=== PATIENT | female | born 1995 | race Caucasian/White ===

== ENCOUNTER 2017-03-26 13:49 | Emergency (ER) | payer OTHER ==
[~2017-03-26] VITALS: Ht 149.9 cm; Wt 41.0 kg
[~2017-03-26 13:49] MED LIST: BISM262O23 PO; IBUP400T22 PO
[2017-03-26 13:52] VITALS: Ht 149.9 cm; Wt 41.0 kg
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
[2017-03-26] MEDS ORDERED: IBUP400T22 PO ×2 (14:21→14:26)
[2017-03-26] MEDS ORDERED: IBUPROFEN 200 MG TAB PO ONE (14:30)
[2017-03-26 15:05] VITALS: BP 135/86; PULSE 66; RESP 20
== END 2017-03-26 15:06 | disposition home or self-care (01) ==
LOC: FTE 13:49
DX: M54.5 Low back pain (principal)
CPT/HCPCS: Z7502; Z7610; 99283

== ENCOUNTER 2017-03-31 19:20 | Emergency (ER) | payer OTHER ==
[~2017-03-31] VITALS: Ht 162.6 cm; Wt 41.5 kg
[2017-03-31 19:31] VITALS: Ht 162.6 cm; Wt 41.5 kg
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
[2017-03-31 22:08] LABS: ADD UMIC YES; UR ASCORBIC ACID NEGATIVE (NEGATIVE); UR BILIRUBIN (Dip) NEGATIVE (NEGATIVE); UR BLOOD (Dip) NEGATIVE (NEGATIVE); UR CLARITY SLIGHTLY CLOUDY (CLEAR); UR COLOR YELLOW (YELLOW); UR GLUCOSE (Dip) NEGATIVE (NEGATIVE); UR KETONES (Dip) NEGATIVE (NEGATIVE); UR LEUKOCYTE ESTERASE (Dip) TRACE Leu/ul (NEGATIVE); UR NITRITE (Dip) NEGATIVE (NEGATIVE); UR RBC 3 /HPF (0-5); UR SPECIFIC GRAVITY (Dip) 1.019 (1.003-1.030); UR SQUAMOUS EPITHELIAL CELL FEW /HPF (FEW); UR TOTAL PROTEIN (Dip) NEGATIVE (NEGATIVE); UR UROBILINOGEN (Dip) 1+ mg/dL (NEGATIVE)
--- NOTE | 2017-03-31 22:29 | RADRPT ---
PROCEDURE: LUMBAR SPINE - 3 VIEWS CLINICAL INDICATION: 21-year-old female with low back pain. TECHNIQUE: AP, lateral and cone-down lateral view of the lumbar spine were obtained. The images we re reviewed on a PACS workstation. COMPARISON: None. FINDINGS: The lumbar vertebral bodies and disk spaces have normal heights and anatomic alignment. No evidence of fracture or subluxation is seen. No significant spondylolisthesis is seen. The partially visualiz ed sacrum is unremarkable. The sacroiliac joints are intact. IMPRESSION: Unremarkable lumbar spine radiographs. .Jorge Alberto Kothari MD, Date Time Electronically viewed and signed by .Jorge Alberto Kothari MD, on 03/31/2017 22:29 .M/
[2017-03-31] MEDS ORDERED: ACET325T33 PO (22:53)
[2017-03-31] MEDS ORDERED: ACETAMINOPHEN 325 MG TAB PO ONE (23:00)
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
== END 2017-03-31 23:18 | disposition home or self-care (01) ==
LOC: FTE 19:20
DX: M54.9 Dorsalgia, unspecified (principal)
CPT/HCPCS: 72100; 76705; 81001; Z7502; Z7610

== ENCOUNTER 2017-04-04 07:23 | Emergency (ER) | payer OTHER ==
[~2017-04-04] VITALS: Ht 149.9 cm; Wt 40.5 kg
[~2017-04-04 07:23] MED LIST changes: +ACET325T33 PO
[2017-04-04 07:31] VITALS: Ht 149.9 cm; Wt 40.5 kg
[2017-04-04] MEDS ORDERED: IBUP400T22 PO (07:50)
[2017-04-04] MEDS ORDERED: AMOX500C2 PO (07:50)
--- NOTE | 2017-04-04 07:54 | ERD ---
ER Documentation Chief Complaint Chief Complaint RIGHT EAR PAIN SINCE LAST NIGHT AFTER A POP HPI 21-year-old female complains of right inner ear pain that started yesterday. She states it began with a popping sensation in her inner ear, she describes achy pain that is sharp, worse with laying down and better with sitting up. She has not had any fevers or chills, otorrhea or discharge. She denies trauma. Patient has tried taking aspirin without much relief. ROS All systems reviewed and are negative except as per history of present illness. Medications Home Meds Active Scripts Ibuprofen* (Motrin*) 400 Mg Tab, 400 MG PO Q6, #30 TAB Prov:CARLOS A COYLE PA-C 04/04/17 Amoxicillin* (Amoxicillin*) 500 Mg Cap, 500 MG PO TID for 10 Days, CAP Prov:CARLOS A COYLE PA-C 04/04/17 Acetaminophen* (Tylenol*) 325 Mg Tablet, 1 TAB PO Q6 Y for PAIN AND OR ELEVATED TEMP, #20 TAB Prov:KEYLA MOE PA-C 03/31/17 Ibuprofen* (Motrin*) 400 Mg Tab, 400 MG PO Q6, #30 TAB Prov:RICARDO GONZALES NP 03/26/17 Bismuth Subsalicylate* (Pepto-Bismol*) 262 Mg/15 Ml Oral.susp, 15 ML PO Q3H Y for DIARRHEA for 5 Days, ML Prov:VASHTI FINN MD 12/04/14 Ibuprofen* (Motrin*) 400 Mg Tab, 400 MG PO Q6, #14 TAB Prov:VASHTI FINN MD 12/04/14 Allergies Allergies: Coded Allergies: No Known Allergy (Unverified , 03/26/17) PMhx/Soc Medical and Surgical Hx: pt denies Medical Hx, pt denies Surgical Hx History of Surgery: No Anesthesia Reaction: No Hx Neurological Disorder: No Hx Respiratory Disorders: No Hx Cardiac Disorders: No Hx Psychiatric Problems: No Hx Miscellaneous Medical Probl: No Hx Alcohol Use: No Hx Substance Use: No Hx Tobacco Use: No Smoking Status: Never smoker Physical Exam Vitals Vital Signs Date Time Temp Pulse Resp B/P Pulse Ox O2 Delivery O2 Flow Rate FiO2 04/04/17 07:31 99.1 97 18 119/79 99 Physical Exam General: Well-developed, well-nourished. The patient appears in no acute distress. HEENT: Head is normocephalic, atraumatic. No scleral icterus. Right TM is bulging and erythematous, left ear is normal. Neck: Supple. Nontender. Lungs: Clear to auscultation. Normal air movement. Heart: Regular rate and rhythm. S1 and S2 are normal. No murmurs, gallops, or rubs. Abdomen: Nondistended. Extremities: No clubbing or cyanosis. Moving extremities x 4. No weakness. Neurologic: Alert and oriented 3. No focal deficits. Normal speech and gait. Skin: Normal turgor. No rash or lesions. Procedures/MDM 21-year-old female comes in with right-sided otitis media, there is evidence of erythema with bulging most consistent with an infection. There are no signs of TM perforation, mastoiditis, deep space infection. Departure Diagnosis: Primary Impression: Otitis media of right ear Condition: Good Patient Instructions: Otitis Media, Abx Tx (Adult) CARLOS A COYLE PA-C Apr 04, 2017 07:54
== END 2017-04-04 07:59 | disposition home or self-care (01) ==
LOC: FTE 07:23
DX: H66.91 Otitis media, unspecified, right ear (principal)
CPT/HCPCS: 99283

== ENCOUNTER 2017-04-19 08:37 | Emergency (ER) | payer OTHER ==
[~2017-04-19] VITALS: Ht 162.6 cm; Wt 40.8 kg
[~2017-04-19 08:37] MED LIST changes: +AMOX500C2 PO
[2017-04-19 08:39] VITALS: Ht 162.6 cm; Wt 40.8 kg
[2017-04-19] MEDS ORDERED: IBUPROFEN 800 MG TAB PO ONE (09:30)
[2017-04-19] MEDS ORDERED: IBUP-1542 PO (10:15)
[2017-04-19] MEDS ORDERED: AMOX1TAB10 PO (10:15)
[2017-04-19] MEDS ORDERED: CIPR7.5D4 RIGHT EAR (10:15)
--- NOTE | 2017-04-19 10:22 | ERD ---
ER Documentation Chief Complaint Chief Complaint r.ear pain/drainage x 2 days HPI This is a 21-year-old female who presents to the emergency department today complaining of some right ear pain and drainage. Patient states she was seen here a couple of weeks ago and was given antibiotics and she took some of them but she started feeling better so she stopped taking them and "forgot to take the rest". Denies any fevers or chills. ROS All systems reviewed and are negative except as per history of present illness. Medications Home Meds Active Scripts Ibuprofen* (Motrin*) 600 Mg Tab, 600 MG PO Q6, #30 TAB Prov:GASTON OHARA PA-C 04/19/17 Ciprofloxacin Hcl/Dexameth (Ciprodex Otic Suspension) 7.5 Ml Drops.susp, 4 DROP RIGHT EAR BID for 7 Days, EA Prov:GASTON OHARA PA-C 04/19/17 Amoxicillin/Potassium Clav (Amox-Clav 875-125 mg Tablet) 875-125 mg Tab, 1 TAB PO BID, #14 TAB Prov:GASTON OHARA PA-C 04/19/17 Ibuprofen* (Motrin*) 400 Mg Tab, 400 MG PO Q6, #30 TAB Prov:CARLOS A COYLE PA-C 04/04/17 Amoxicillin* (Amoxicillin*) 500 Mg Cap, 500 MG PO TID for 10 Days, CAP Prov:CARLOS A COYLE PA-C 04/04/17 Acetaminophen* (Tylenol*) 325 Mg Tablet, 1 TAB PO Q6 Y for PAIN AND OR ELEVATED TEMP, #20 TAB Prov:KEYLA MOE PA-C 03/31/17 Ibuprofen* (Motrin*) 400 Mg Tab, 400 MG PO Q6, #30 TAB Prov:RICARDO GONZALES NP 03/26/17 Bismuth Subsalicylate* (Pepto-Bismol*) 262 Mg/15 Ml Oral.susp, 15 ML PO Q3H Y for DIARRHEA for 5 Days, ML Prov:VASHTI FINN MD 12/04/14 Ibuprofen* (Motrin*) 400 Mg Tab, 400 MG PO Q6, #14 TAB Prov:VASHTI FINN MD 12/04/14 Allergies Allergies: Coded Allergies: No Known Allergy (Unverified , 03/26/17) PMhx/Soc Medical and Surgical Hx: pt denies Medical Hx, pt denies Surgical Hx History of Surgery: No Anesthesia Reaction: No Hx Neurological Disorder: No Hx Respiratory Disorders: No Hx Cardiac Disorders: No Hx Psychiatric Problems: No Hx Miscellaneous Medical Probl: No Hx Alcohol Use: No Hx Substance Use: No Hx Tobacco Use: No Smoking Status: Never smoker Physical Exam Vitals Vital Signs Date Time Temp Pulse Resp B/P Pulse Ox O2 Delivery O2 Flow Rate FiO2 04/19/17 08:39 99.2 106 18 121/83 98 Physical Exam Const: NAD Head: Atraumatic Eyes: Normal Conjunctiva ENT: Right ear with TM erythema. Mild drainage. Ears TMs normal. Nontender mastoids nose no drainage. Throat erythema no exudate Neck: Full range of motion..~ No meningismus. Resp: Clear to auscultation bilaterally Cardio: Regular rate and rhythm, no murmurs Abd: Soft, non tender, non distended. Normal bowel sounds Skin: No petechiae or rashes Neur: Awake and alert Psych: Normal Mood and Affect Results 24 hrs Current Medications Medications (Trade) Dose Ordered Sig/Judy Route PRN Reason Start Time Stop Time Status Last Admin Dose Admin Ibuprofen (Motrin) 800 mg ONCE ONCE PO 04/19/17 09:30 04/19/17 09:31 DC 04/19/17 09:30 Procedures/MDM This is a 21-year-old female presents emergency department today complaining of right ear pain and drainage that started yesterday. Upon review of patient's medical records patient was seen here on April 04 and diagnosed with right ear otitis media. She was given a prescription for amoxicillin. Per reports of the patient she took some of the pills but did not finish them. Patient does have some mild drainage from her right ear and her symptoms at this time is consistent with otitis externa or serous otitis media. I discussed the patient with Dr. Guevara and she feels that the patient may benefit from being switched to Augmentin as well as Ciprodex. Patient is afebrile and otherwise well-appearing. There is no tenderness to the mastoids and I have low suspicion for mastoiditis. Patient was given Motrin here in the emergency department. She did indicate she has a follow-up with appointment her primary care doctor later this week. I have instructed her to stop taking the amoxicillin and take Augmentin as well as Ciprodex. Also given a prescription for Motrin .patient understood. At this time the patient is stable for discharge and outpatient management. Patient should follow up with their PCP in the next 1-2 days. They may return to the emergency department sooner for any persistent or worsening of symptoms. Patient understood and agreed with the plan. Departure Diagnosis: Primary Impression: Right ear pain Condition: Fair Patient Instructions: Otitis Externa (Child) Referrals: GLYNN ABBOTT (PCP) Additional Instructions: Call your primary care doctor TOMORROW for an appointment during the next 1-2 days.See the doctor sooner or return here if your condition worsens before your appointment time. Stop taking the amoxicillin and take Augmentin and use eardrops Take Tylenol or Motrin for pain. Do not put anything in the ear besides the eardrops GASTON OHARA PA-C Apr 19, 2017 10:22
== END 2017-04-19 10:20 | disposition home or self-care (01) ==
LOC: FTE 08:37
DX: H92.01 Otalgia, right ear (principal)
CPT/HCPCS: Z7502; Z7610; 99283